=== PATIENT | male | born 1955 | race Caucasian/White ===

== ENCOUNTER 2022-05-06 14:55 | Outpatient (CLI) | payer BC | END 2022-05-06 14:56 | disposition home or self-care (01) | LOC: BICMAMMO 14:55 | PROVIDERS: ATTEND Internal Medicine Rheumatology | DX: M81.0 Age-related osteoporosis without current pathological fracture (principal); M85.852 Other specified disorders of bone density and structure, left thigh; M85.851 Other specified disorders of bone density and structure, right thigh | CPT/HCPCS: 77080 ==

== ENCOUNTER 2022-05-12 13:58 | Day surgery (SDC) | payer BC ==
[2022-05-12] MEDS ORDERED: Tixagevimab 1.5 ML/Cilgavimab 1.5 ML (EUA) IM SCH (14:30)
[2022-05-12 15:21] VITALS: BP 117/62; TEMP 97.6
== END 2022-05-12 15:50 | disposition home or self-care (01) ==
LOC: ONC/OP 13:58
PROVIDERS: ATTEND Internal Medicine Rheumatology
DX: Z29.8 Encounter for other specified prophylactic measures (principal); M13.0 Polyarthritis, unspecified
CPT/HCPCS: M0220; Q0220